=== PATIENT | female | born 1960 | race Caucasian/White ===

== ENCOUNTER → 2018-11-11 | Outpatient (CLI) | payer BC ==
--- NOTE | 2018-11-12 13:02 | RAD ---
DATE: 11/11/2018 EXAM: MAMMO JEAN CARLOS SCREENING BILATERAL HISTORY: Routine screening COMPARISON: None available This study was interpreted with the benefit of Computerized Aided Detection (CAD). Breast Density: SCATTERED The breast parenchyma shows scattered fibroglandular densities. Breast parenchyma level B. FINDINGS: There is a 3.5 mm smooth nodule in the posterolateral aspect of the left breast. A couple of other tiny smooth nodules are seen more centrally in the left breast. Multiple smooth nodule such as this tend to be benign. No spiculated mass or architectural distortion is seen. Benign type calcifications are present in both breasts. No suspicious microcalcifications are evident. IMPRESSION: Probably benign smooth left breast nodules. In the absence of previous mammograms to establish stability, follow-up 3-D left mammography in 6 months and bilateral mammography at one year is suggested. BI-RADS CATEGORY: 3 PROBABLY BENIGN FINDING(S)-SHORT INTERVAL FOLLOW-UP SUGGESTED RECOMMENDED FOLLOW-UP: 6M 6 MONTH FOLLOW-UP PQRS compliance statement: Patient information was entered into a reminder system with a target due date for the next mammogram. Mammography is a sensitive method for finding small breast cancers, but it does not detect them all and is not a substitute for careful clinical examination. A negative mammogram does not negate a clinically suspicious finding and should not result in delay in biopsying a clinically suspicious abnormality. "Our facility is accredited by the [employer] Mammography Program."
== END | disposition home or self-care (01) ==
LOC: MAMMO 15:27
PROVIDERS: ATTEND Physician Assistant Medical
DX: Z12.31 Encounter for screening mammogram for malignant neoplasm of breast (principal)
CPT/HCPCS: 77063; 77067

== ENCOUNTER → 2019-04-30 | Outpatient (CLI) | payer BC ==
--- NOTE | 2019-04-30 10:46 | RAD ---
EXAM: Chest, 2 views HISTORY: Chest wall pain. COMPARISON: 06/13/2016 FINDINGS: 2 views the chest are obtained. There is stable mild interstitial prominence. There is no consolidation, pleural effusion or pneumothorax. The heart is normal in size. IMPRESSION: No acute pulmonary finding. Electronically signed by: Alana Chou MD (04/30/2019 10:43 AM) [id number]
== END | disposition home or self-care (01) ==
LOC: PMG 10:03
PROVIDERS: ATTEND Physician Assistant Medical
DX: J84.89 Other specified interstitial pulmonary diseases (principal)
CPT/HCPCS: 71046